=== PATIENT | male | born 1950 | race Caucasian/White ===

== ENCOUNTER 2024-01-15 17:00 | Emergency (ER) | payer MEDICARE, OTHER ==
[2024-01-15 17:17] VITALS: O2SAT 98
--- NOTE | 2024-01-15 17:27 | XRAY Report ---
PROCEDURE: Chest 1V INDICATIONS: Chest pain TECHNIQUE: One view of the chest was acquired. COMPARISON: None. FINDINGS: Surgical changes and devices: None. Lungs and pleura: No pleural effusions or pneumothorax. Lungs are clear. Mediastinum: Mediastinal contours appear normal. Heart size is normal. Bones and chest wall: No suspicious bony lesions. Overlying soft tissues appear unremarkable. IMPRESSION: No acute cardiopulmonary process. Reviewed by: Mann Aponte MD on 01/15/2024 5:26 PM PDT Approved by: Mann Aponte MD on 01/15/2024 5:26 PM PDT Station ID: [id number]
[2024-01-15 17:32] LABS: BASOPHILS % (AUTO) 0.2 %; EOSINOPHILS % (AUTO) 0.2 %; HCT - HEMATOCRIT 41.8 % (42.0-52.0); HGB - HEMOGLOBIN 13.7 g/dL (14.0-18.0); LYMPHOCYTES # (AUTO) 0.7 10^3/uL (1.5-3.5); LYMPHOCYTES % (AUTO) 6.9 %; MEAN CORPUSCULAR HEMOGLOBIN 29.8 pg (27.0-31.0); MEAN CORPUSCULAR HGB CONC 32.8 g/dL (32.0-36.0); MEAN CORPUSCULAR VOLUME 91.1 fL (80.0-94.0); MEAN PLATELET VOLUME 9.6 fL (7.4-11.4); MONOCYTES # (AUTO) 0.8 10^3/uL (0.0-1.0); MONOCYTES % (AUTO) 8.6 %; NEUTROPHILS # (AUTO) 7.9 10^3/uL (1.5-6.6); NEUTROPHILS % (AUTO) 83.8 %; PLT - PLATELET COUNT 184 10^3/uL (130-450); RED BLOOD COUNT 4.59 10^6/uL (4.70-6.10); RED CELL DISTRIBUTION WIDTH 13.3 % (12.0-15.0); WHITE BLOOD COUNT 9.4 x10^3/uL (4.8-10.8)
[2024-01-15 17:52] LABS: TROPONIN I HIGH SENSITIVITY 6.2 ng/L (2.3-19.7)
[2024-01-15 17:55] LABS: ALBUMIN 4.2 g/dL (3.2-5.5); ALBUMIN/GLOBULIN RATIO 1.5 (1.0-2.2); BILIRUBIN,TOTAL 1.2 mg/dL (0.2-1.0); CALCIUM 9.2 mg/dL (8.5-10.3); CREATININE 0.9 mg/dL (0.6-1.3); POTASSIUM 4.3 mmol/L (3.5-4.5)
--- NOTE | 2024-01-15 18:17 | ED Physician Documentation ---
PD HPI CHEST PAIN - Stated complaint Stated Complaint: CHEST PX - Chief complaint Chief Complaint: Cardiac - Additional information Additional information: 73-year-old male presents emergency department for left-sided chest pain. Patient said that he originally went to a walk-in clinic but they sent him here to the emergency department for possible abnormal EKG. Patient says that he awoke suddenly in the middle the night with some left-sided chest pain and pain with inhalation. It eventually went away and he was able to fall back asleep and today he is just noticing some intermittent pain when he takes deep inhalation. He denies any cardiac history or other past medical history at all he does not take any medications for anything daily. He says that he has recently been moving and lifting a lot of heavy things lately and thinks this could be contributing it to it but wants to make sure this is not cardiac related. He denies any dizziness any shortness of breath or any vision changes. PD PAST MEDICAL HISTORY - Past Medical History Past Medical History: Yes Other Past Medical History: Chronic back pain - Past Surgical History Past Surgical History: No - Present Medications Home Medications: Ambulatory Orders Medication Instructions Recorded Confirmed No Known Home Medications 01/15/24 01/15/24 - Allergies Allergies/Adverse Reactions: Allergies Allergy/AdvReac Type Severity Reaction Status Date / Time No Known Drug Allergies Allergy Verified 01/15/24 17:09 - Social History Does the pt smoke?: Yes Smoking Status: Never smoker PD ED PE NORMAL - Vitals Vital signs reviewed: Yes - General General: Alert and oriented X 3, No acute distress, Well developed/nourished - HEENT HEENT: PERRL - Cardiac Cardiac: RRR, No murmur, No gallop, Strong equal pulses - Respiratory Respiratory: No respiratory distress, Clear bilaterally - Abdomen Abdomen: Normal bowel sounds, Soft - Back Back: No CVA TTP - Derm Derm: Normal color, Warm and dry, No rash - Psych Psych: Normal mood, Normal affect Results - Vitals Vitals: Vital Signs - 24 hr 01/15/24 01/15/24 17:04 18:22 Temperature 36.9 C Heart Rate 88 78 Respiratory 16 13 Rate Blood Pressure 172/80 H 181/82 H O2 Saturation 98 98 Oxygen O2 Source Room air - EKG (time done) 1719 EKG releavant findings:: EKG personally interpreted by author of this note. Relevant findings are: Rate: Rate (enter#) (85) Rhythm: NSR Birney: LAD Intervals: Normal AK, Other QRS: Normal, LVH Ischemia: Normal ST segments Computer interpretation: Disagree with computer - Labs Labs: Laboratory Tests 01/15/24 01/15/24 17:25 17:25 WBC 9.4 RBC 4.59 L Hgb 13.7 L Hct 41.8 L MCV 91.1 MCH 29.8 MCHC 32.8 RDW 13.3 Plt Count 184 MPV 9.6 Neut # (Auto) 7.9 H Lymph # (Auto) 0.7 L [place] # (Auto) 0.8 Eos # (Auto) 0.0 Baso # (Auto) 0.0 Absolute Nucleated RBC 0.00 Nucleated RBC % 0.0 Sodium 135 Potassium 4.3 Chloride 101 Carbon Dioxide 28 Anion Gap 6.0 BUN 21 H Creatinine 0.9 Estimated GFR (MDRD) 83 L Glucose 117 H Calcium 9.2 Total Bilirubin 1.2 H AST 21 ALT 22 Alkaline Phosphatase 83 Troponin I High Sens 6.2 Total Protein 7.0 Albumin 4.2 Globulin 2.8 Albumin/Globulin Ratio 1.5 Lipase 17 - Rads (name of study) Chest x-ray Relevant Findings:: Final report received, EMP independent interpretation of test, Other (No acute cardiopulmonary process) PD Medical Decision Making - ED course ED course: Exam without evidence of volume overload so doubt heart failure. EKG without signs of active ischemia. Given the timing of pain to ER presentation, single troponin was negative so doubt NSTEMI. Presentation not consistent with acute PE (Wells low risk low), pneumothorax (not visualized on chest xr), thoracic aortic dissection, pericarditis, tamponade, pneumonia (no infectious symptoms, clear chest xr), myocarditis (no recent illness, neg trop). HEART score:3 so plan to discharge patient home with PCP follow up. Patient is relieved. He was given strict ER return precautions all questions answered and he said that he will be making an appointment to follow-up with his primary care provider soon as possible. Departure - Departure Disposition: Home, Self Care Clinical Impression: Chest pain Qualifiers: Chest pain type: chest pain on breathing Qualified Code(s): R07.1 - Chest pain on breathing Instructions: ED Chest Pain Atypical Unkn Cause Comments: Thank you for trusting us with your care, we have evaluated you for your chest pain. We have completed labs including a troponin which measures for possible cardiac enzyme breakdown, EKG, chest x-ray and we are not seeing any acute abnormalities or findings at this time indicative of possible heart attack. Although we are not seeing anything acute at this point in time please have a very low threshold to come back to the emergency department if your chest pain gets any worse or changes in any way shape or form. Please help with your primary care provider to let them know about today's ER visit. Alternate between Tylenol and ibuprofen to see if this helps with your chest discomfort to see if this is possibly related to musculoskeletal as you have been using your upper chest more for for school exertional activities. Please have a very low threshold to come back to the emergency department if your chest pain gets worse in any way shape or form. Forms: PCP List Discharge Date/Time: 01/15/24 18:34
[2024-01-15 18:38] VITALS: BP 181/82
== END 2024-01-15 18:34 | disposition home or self-care (01) ==
LOC: ED 17:00
DX: R07.1 Chest pain on breathing (principal)
CPT/HCPCS: 36415; 80053; 83690; 84484; 85025; 93005; 99284